=== PATIENT | male | born 1965 | race Caucasian/White ===

== ENCOUNTER 2019-03-13 08:41 | Emergency (ER) | payer BC ==
--- NOTE | 2019-03-13 08:54 | EDM.PDOC ---
ED HPI GENERAL MEDICAL PROBLEM - General Chief Complaint: Fever Stated Complaint: ACHY, FEVER, COUGH [id number] Time Seen by Provider: 03/13/19 08:52 Source of Information: Reports: Patient, Old Records, RN, RN Notes Reviewed History Limitations: Reports: No Limitations - History of Present Illness INITIAL COMMENTS - FREE TEXT/NARRATIVE: Pt presents with c/o three days duration of fever, chills, generalized body aches and loss of appetite. Admits to clear runny nose, dry cough, and headache. Denies sore throat, abdominal pain, N/V/D, or rash. Onset: Sudden Onset Date: 03/10/19 Duration: Constant Location: Reports: Generalized Quality: Reports: Ache Severity: Severe Improves with: Reports: None Worsens with: Reports: None Associated Symptoms: Reports: No Other Symptoms Generalized Pain Score (Numeric/FACES): 7 - Related Data Allergies Allergy/AdvReac Type Severity Reaction Status Date / Time No Known Allergies Allergy Verified 03/13/19 09:27 Home Meds: Home Meds Fenofibrate,Micronized [Fenofibrate] 134 mg PO DAILY 11/21/14 [History] Metoprolol Succinate [Toprol XL] 50 mg PO DAILY 11/21/14 [History] Omeprazole 20 mg PO DAILY 08/31/16 [History] Past Medical History - Past Health History Medical/Surgical History: Denies Medical/Surgical History HEENT History: Reports: Impaired Vision Cardiovascular History: Reports: High Cholesterol Gastrointestinal History: Reports: GERD Social & Family History - Family History Family Medical History: Noncontributory - Tobacco Use Smoking Status *Q: Never Smoker - Caffeine Use Caffeine Use: Reports: Coffee - Living Situation & Occupation Living situation: Reports: Occupation: Employed ED ROS GENERAL - Review of Systems Review Of Systems: ROS reveals no pertinent complaints other than HPI. ED EXAM, GENERAL - Physical Exam Exam: See Below Exam Limited By: No Limitations General Appearance: Alert, WD/WN, No Apparent Distress Eye Exam: Bilateral Eye: Normal Inspection Ears: Normal External Exam, Normal Canal, Hearing Grossly Normal, Normal TMs Nose: Normal Inspection, Normal Mucosa, No Blood, Nasal Drainage (mild clear) Throat/Mouth: Normal Lips, Normal Teeth, Normal Gums, Normal Oropharynx, Normal Voice, No Airway Compromise, Other (Dry oral membranes) Head: Atraumatic, Normocephalic Neck: Normal Inspection, Supple, Non-Tender, Full Range of Motion. No: Lymphadenopathy (L), Lymphadenopathy (R) Respiratory/Chest: No Respiratory Distress, Lungs Clear, Normal Breath Sounds, No Accessory Muscle Use, Chest Non-Tender, Rhonchi (faint rhonchi at B/L mid- chest), Other (Dry cough). No: Crackles, Rales, Wheezing, Stridor Cardiovascular: Regular Rate, Rhythm, No Edema, No Murmur, Tachycardia GI/Abdominal: Normal Bowel Sounds, Soft, Non-Tender, No Organomegaly, No Distention, No Abnormal Bruit, No Mass Back Exam: Normal Inspection, Full Range of Motion. No: CVA Tenderness (L), CVA Tenderness (R) Extremities: Normal Inspection, Normal Range of Motion, Non-Tender, No Pedal Edema, Normal Capillary Refill. No: Joint Swelling, Redness Neurological: Alert, Oriented, CN II-XII Intact, Normal Cognition, Normal Gait, No Motor/Sensory Deficits Psychiatric: Depressed Mood, Flat Affect Skin Exam: Warm, Dry, Intact, Normal Color, No Rash Course - Vital Signs Last Recorded V/S: Last Vital Signs Temp 37.1 C 03/13/19 11:06 Pulse 98 03/13/19 11:06 Resp 20 03/13/19 11:06 BP 106/66 03/13/19 11:06 Pulse Ox 95 03/13/19 11:06 - Orders/Labs/Meds Orders: Active Orders 24 hr Category Date Time Status Peripheral IV Care [RC] . DIRECTED Care 03/13/19 08:55 Active CULTURE BLOOD [] Stat Lab 03/13/19 10:15 Received CULTURE BLOOD [] Stat Lab 03/13/19 10:20 Received CULTURE STREP A CONFIRMATION [] Stat Lab 03/13/19 09:45 Results CULTURE URINE [] Stat Lab 03/13/19 09:45 Received STREP SCRN A RAPID W CULT CONF [] Stat Lab 03/13/19 09:45 Results Azithromycin [Zithromax] 500 mg Med 03/13/19 10:26 Active Sodium Chloride 0.9% [Normal Saline] 250 ml IV ONETIME Sodium Chloride 0.9% [Saline Flush] Med 03/13/19 08:55 Active 10 ml FLUSH ASDIRECTED PRN Blood Culture x2 Reflex Set [OM.PC] Stat Oth 03/13/19 10:05 Ordered Peripheral IV Insertion Adult [OM.PC] Stat Ot 03/13/19 08:54 Ordered Medication Orders Azithromycin 500 mg/ Sodium (Chloride) 250 mls @ 250 mls/hr IV ONETIME ONE Stop: 03/13/19 11:25 Last Admin: 03/13/19 10:40 Dose: 250 mls/hr Sodium Chloride (Saline Flush) 10 ml FLUSH ASDIRECTED PRN PRN Reason: Keep Vein Open Last Admin: 03/13/19 09:13 Dose: 10 ml Labs: Laboratory Tests 03/13/19 03/13/19 03/13/19 Range/Units 09:05 09:05 09:45 WBC 9.4 (5.0-10.0) 10^3/uL RBC 4.88 (4.6-6.2) 10^6/uL Hgb 15.1 (14.0-18.0) g/dL Hct 42.9 (40.0-54.0) % MCV 87.9 (80-100) fL MCH 30.9 (27.0-34.0) pg MCHC 35.2 H (33.0-35.0) g/dL Plt Count 136 L (150-450) 10^3/uL Neut % (Auto) 87.2 H (42.2-75.2) % Lymph % (Auto) 4.6 L (20.5-50.1) % Barron % (Auto) 8.0 (2-8) % Eos % (Auto) 0.0 L (1.0-3.0) % Baso % (Auto) 0.2 (0.0-1.0) % Sodium 130 L (135-145) mmol/L Potassium 4.1 (3.6-5.0) mmol/L Chloride 96 L (101-111) mmol/L Carbon Dioxide 18.0 L (21.0-31.0) mmol/L Anion Gap 20.1 BUN 23 H (7-18) mg/dL Creatinine 1.9 H (0.6-1.3) mg/dL Est Cr Clr Drug Dosing 46.24 mL/min Estimated GFR (MDRD) 37 BUN/Creatinine Ratio 12.10 Glucose 161 H (74-105) mg/dL Lactic Acid (0.5-2.2) mmol/L Calcium 8.8 (8.4-10.2) mg/dl Total Bilirubin 1.4 H (0.2-1.0) mg/dL AST 42 (10-42) IU/L ALT 41 (10-60) IU/L Alkaline Phosphatase 49 (42-121) IU/L Total Protein 8.7 H (6.7-8.2) g/dl Albumin 4.3 (3.2-5.5) g/dl Globulin 4.4 Albumin/Globulin Ratio 0.98 Urine Color Dark yellow (YELLOW) Urine Appearance Turbid (CLEAR) Urine pH 5.0 (5.0-9.0) Ur Specific [place] >= 1.030 (1.005-1.030) Urine Protein >=300 H (NEGATIVE) Urine Glucose (UA) Negative (NEGATIVE) Urine Ketones Trace H (NEGATIVE) Urine Occult Blood Moderate H (NEGATIVE) Urine Nitrite Negative (NEGATIVE) Urine Bilirubin Small H (NEGATIVE) Urine Urobilinogen 1.0 (0.2-1.0) mg/dL Ur Leukocyte Esterase Trace H (NEGATIVE) Urine RBC 40-50 H /HPF Urine WBC 5-10 H (0-5/HPF) /HPF Ur Epithelial Cells Rare (NOT SEEN) /HPF Amorphous Sediment Many (NOT SEEN) /HPF Urine Bacteria Moderate H (0-FEW/HPF) /HPF Granular Casts Moderate (NOT SEEN) /LPF Urine Mucus Few H (NOT SEEN) /LPF 03/13/19 Range/Units 10:15 WBC (5.0-10.0) 10^3/uL RBC (4.6-6.2) 10^6/uL Hgb (14.0-18.0) g/dL Hct (40.0-54.0) % MCV (80-100) fL MCH (27.0-34.0) pg MCHC (33.0-35.0) g/dL Plt Count (150-450) 10^3/uL Neut % (Auto) (42.2-75.2) % Lymph % (Auto) (20.5-50.1) % Barron % (Auto) (2-8) % Eos % (Auto) (1.0-3.0) % Baso % (Auto) (0.0-1.0) % Sodium (135-145) mmol/L Potassium (3.6-5.0) mmol/L Chloride (101-111) mmol/L Carbon Dioxide (21.0-31.0) mmol/L Anion Gap BUN (7-18) mg/dL Creatinine (0.6-1.3) mg/dL Est Cr Clr Drug Dosing mL/min Estimated GFR (MDRD) BUN/Creatinine Ratio Glucose (74-105) mg/dL Lactic Acid 1.7 (0.5-2.2) mmol/L Calcium (8.4-10.2) mg/dl Total Bilirubin (0.2-1.0) mg/dL AST (10-42) IU/L ALT (10-60) IU/L Alkaline Phosphatase (42-121) IU/L Total Protein (6.7-8.2) g/dl Albumin (3.2-5.5) g/dl Globulin Albumin/Globulin Ratio Urine Color (YELLOW) Urine Appearance (CLEAR) Urine pH (5.0-9.0) Ur Specific [place] (1.005-1.030) Urine Protein (NEGATIVE) Urine Glucose (UA) (NEGATIVE) Urine Ketones (NEGATIVE) Urine Occult Blood (NEGATIVE) Urine Nitrite (NEGATIVE) Urine Bilirubin (NEGATIVE) Urine Urobilinogen (0.2-1.0) mg/dL Ur Leukocyte Esterase (NEGATIVE) Urine RBC /HPF Urine WBC (0-5/HPF) /HPF Ur Epithelial Cells (NOT SEEN) /HPF Amorphous Sediment (NOT SEEN) /HPF Urine Bacteria (0-FEW/HPF) /HPF Granular Casts (NOT SEEN) /LPF Urine Mucus (NOT SEEN) /LPF Influenza A/B: negative Rapid Strep: negative Meds: Medications Generic Name Dose Route Start Last Admin Trade Name Freq PRN Reason Stop Dose Admin Azithromycin 500 mg/ Sodium 250 mls @ 250 mls/hr 03/13/19 10:26 03/13/19 10: 40 Chloride IV 03/13/19 11:25 250 mls/hr ONETIME ONE Administration Sodium Chloride 10 ml 03/13/19 08:55 03/13/19 09:13 Saline Flush FLUSH 10 ml ASDIRECTED PRN Administration Keep Vein Open Discontinued Medications Generic Name Dose Route Start Last Admin Trade Name Freq PRN Reason Stop Dose Admin Acetaminophen 975 mg 03/13/19 08:55 03/13/19 09:18 Tylenol PO 03/13/19 08:56 975 mg NOW ONE Administration Sodium Chloride 1,000 mls @ 999 mls/hr 03/13/19 08:55 03/13/19 09:11 Normal Saline IV 03/13/19 09:55 999 mls/hr .BOLUS ONE Administration Ceftriaxone Sodium 2 gm/ 100 mls @ 200 mls/hr 03/13/19 10:26 Sodium Chloride IV 03/13/19 10:55 ONETIME ONE Ketorolac Tromethamine 30 mg 03/13/19 08:55 03/13/19 09:15 Toradol IVPUSH 03/13/19 08:56 30 mg ONETIME ONE Administration - Radiology Interpretation Free Text/Narrative:: [facility] Final Radiology Report Call: [phone] assistance Online chat: [email or web address] Name: TAMICA TREJO Age: 54Years M Date: 03/13/2019 SSN: -- : [id number] Study: XR CHEST 2 VIEWS FRONTAL & LAT Requesting Physician: ALEXI SAMAYOA Images: 2 Addl Studies: Provided Clinical History: Contrast: Contrast Medium: Contrast Amount: Contrast Method: CONFIDENTIALITY STATEMENT This report is intended only for use by the referring physician, and only in accordance with law. If you received this in error, call [phone]. Page 1 of 1 EXAM: XR Chest, 2 Views EXAM DATE/TIME: 03/13/2019 9:31 AM CLINICAL HISTORY: 54 years old, male; Signs and symptoms; Cough and fever TECHNIQUE: Imaging protocol: XR of the chest, 2 views. COMPARISON: CR CHEST PORTABLE 09/22/2008 7:23 PM FINDINGS: Lungs: The lungs are mildly hyperinflated. There is some patchy atelectasis and/ or infiltrate inferiorly in the lingula and right middle lobe. The lungs are otherwise clear. Pleural space: Unremarkable. No pleural effusion. No pneumothorax. Heart/Mediastinum: Unremarkable. No cardiomegaly. Bones/joints: Unremarkable. IMPRESSION: Mild hyperinflation with patchy atelectasis and/or infiltrate inferiorly in the lingula and right middle lobe. Thank you for allowing us to participate in the care of your patient. Dictated and Authenticated by: Gerson Roblero MD 03/13/2019 10:22 AM Central Time ([place] & [place]) - Re-Assessments/Exams Free Text/Narrative Re-Assessment/Exam: 03/13/19 11:13 I explained the exam findings, results of all diagnostic tests, working diagnosis, and any potential or additionally considered diagnoses, treatment/ disposition plan, self/home care instructions, rational for the diagnosis/ treatment plan/disposition plan, anticipated course of illness, and follow up instructions to the pt and/or pts family or guardian. The pt and/or pts family or guardian acknowledges understanding of the above explanation(s), and of the signs and symptoms which should prompt the return of the pt to the ER should those or any other concerning symptoms develop. Departure - Departure Time of Disposition: 12:00 Disposition: Home, Self-Care 01 Condition: Fair Clinical Impression: Dehydration Pneumonia Qualifiers: Pneumonia type: due to unspecified organism Laterality: bilateral Lung location : unspecified part of lung Qualified Code(s): J18.9 - Pneumonia, unspecified organism UTI (urinary tract infection) Qualifiers: Urinary tract infection type: site unspecified Hematuria presence: with hematuria Qualified Code(s): N39.0 - Urinary tract infection, site not specified ; R31.9 - Hematuria, unspecified - Discharge Information *PRESCRIPTION DRUG MONITORING PROGRAM REVIEWED*: No *COPY OF PRESCRIPTION DRUG MONITORING REPORT IN PATIENT VADIM: No Instructions: Community-Acquired Pneumonia, Adult, [id number], Urinary Tract Infection, Adult, [id number], Dehydration, Adult, Fever, Adult, [id number] Forms: ED Department Discharge Additional Instructions: Rx: Zithromax 500mg Rx: Cefdinir 300mg Use Tylenol and Ibuprofen as needed for fevers. Follow directions on label for dosing and precautions. Drink plenty of water. Follow up in clinic in 2 to 3 days for recheck. Return to ER if worse at any time. - My Orders Last 24 Hours: My Active Orders 03/13/19 08:54 Peripheral IV Insertion Adult [OM.PC] Stat 03/13/19 08:55 Peripheral IV Care [RC] . DIRECTED Sodium Chloride 0.9% [Saline Flush] 10 ml FLUSH ASDIRECTED PRN 03/13/19 09:45 CULTURE STREP A CONFIRMATION [RM] Stat CULTURE URINE [RM] Stat STREP SCRN A RAPID W CULT CONF [RM] Stat 03/13/19 10:05 Blood Culture x2 Reflex Set [OM.PC] Stat 03/13/19 10:15 CULTURE BLOOD [BC] Stat 03/13/19 10:20 CULTURE BLOOD [BC] Stat 03/13/19 10:26 Azithromycin [Zithromax] 500 mg Sodium Chloride 0.9% [Normal Saline] 250 ml IV ONETIME - Assessment/Plan Last 24 Hours: My Active Orders 03/13/19 08:54 Peripheral IV Insertion Adult [OM.PC] Stat 03/13/19 08:55 Peripheral IV Care [RC] . DIRECTED Sodium Chloride 0.9% [Saline Flush] 10 ml FLUSH ASDIRECTED PRN 03/13/19 09:45 CULTURE STREP A CONFIRMATION [RM] Stat CULTURE URINE [RM] Stat STREP SCRN A RAPID W CULT CONF [RM] Stat 03/13/19 10:05 Blood Culture x2 Reflex Set [OM.PC] Stat 03/13/19 10:15 CULTURE BLOOD [BC] Stat 03/13/19 10:20 CULTURE BLOOD [BC] Stat 03/13/19 10:26 Azithromycin [Zithromax] 500 mg Sodium Chloride 0.9% [Normal Saline] 250 ml IV ONETIME
[2019-03-13] MEDS ORDERED: Acetaminophen 325 MG Tab PO ONE (08:55)
[2019-03-13] MEDS ORDERED: Sodium Chloride 0.9% 1,000 ML IV ONE (08:55)
[2019-03-13] MEDS ORDERED: Ketorolac 30 MG/ML SDV IVPUSH ONE (08:55)
[2019-03-13] MEDS ORDERED: Sodium Chloride 0.9% 10 ML Syringe FLUSH PRN (08:55)
[2019-03-13 09:30] LABS: ANION GAP 20.1
[2019-03-13] MEDS ORDERED: cefTRIAXone 2 GM in Sodium Chloride 0.9% 100 ML IV ONE (10:26)
[2019-03-13] MEDS ORDERED: Azithromycin 500 MG in Sodium Chloride 0.9% 250 ML IV ONE (10:26)
[2019-03-13 12:22] VITALS: BP 123/74
== END 2019-03-13 12:41 | disposition home or self-care (01) ==
LOC: DL.ED 08:41
DX: J18.9 Pneumonia, unspecified organism (principal); N39.0 Urinary tract infection, site not specified; R31.9 Hematuria, unspecified; E86.0 Dehydration; K21.9 Gastro-esophageal reflux disease without esophagitis; Z79.899 Other long term (current) drug therapy
CPT/HCPCS: 36415; 71046; 80053; 81001; 83605; 85025; 87040; 87081; 87086; 87430; 87804; 96361; 96365; 96367; 96375; 99283; A9270; J0456; J0696; J1885; J7030; J7050